=== PATIENT | male | born 1935 | race Asian ===

== ENCOUNTER 2019-01-26 19:36 | Emergency (ER) | payer MEDICARE ==
[~2019-01-26] VITALS: Ht 165.1 cm; Wt 63.5 kg
--- NOTE | 2019-01-26 19:28 | NUR ---
ED Nurse Note: pt came in with r68 from home, c/o SOB pt denies any pain bedside bp is 162/101 and heart rate 98
[2019-01-26 19:38] VITALS: BP 183/109
--- NOTE | 2019-01-26 19:45 | NUR ---
ED Nurse Note: blood sent to lab
--- NOTE | 2019-01-26 20:07 | NUR ---
ED Nurse Note: followed up with xray lab, per pest control service technician they will be on their way
[2019-01-26 20:14] LABS: EOSINOPHILS % (AUTO) 3.6 % (0.0-3.0); HEMATOCRIT 41.3 % (42.0-52.0); HEMOGLOBIN 13.3 G/DL (14.2-18.0); LYMPHOCYTES % (AUTO) 18.6 % (20.0-45.0); MEAN CORPUSCULAR VOLUME 92 FL (80-99); MONOCYTES % (AUTO) 10.4 % (1.0-10.0); NEUTROPHILS % (AUTO) 65.4 % (45.0-75.0); PLATELET COUNT 128 K/UL (150-450); RED BLOOD COUNT 4.51 M/UL (4.70-6.10); RED CELL DISTRIBUTION WIDTH 12.4 % (11.6-14.8); WHITE BLOOD COUNT 6.5 K/UL (4.8-10.8)
[2019-01-26 20:27] LABS: ANION GAP 9 mmol/L (5-15); BLOOD UREA NITROGEN 26 mg/dL (7-18); CALCIUM 9.2 MG/DL (8.5-10.1); CARBON DIOXIDE 26 MMOL/L (21-32); CHLORIDE 106 MMOL/L (98-107); CREATININE 1.8 MG/DL (0.55-1.30); POTASSIUM 4.7 MMOL/L (3.5-5.1); SODIUM 141 MMOL/L (136-145)
[2019-01-26] MEDS ORDERED: Nitroglycerin 2% oint pkt TOPIC ONE (20:30)
[2019-01-26 20:40] LABS: ALANINE AMINOTRANSFERASE 63 U/L (12-78); ALBUMIN 3.4 G/DL (3.4-5.0); ALKALINE PHOSPHATASE 94 U/L (46-116); ASPARTATE AMINO TRANSFERASE 67 U/L (15-37); BILIRUBIN,TOTAL 0.6 MG/DL (0.2-1.0); CKMB 2.3 NG/ML (0.0-3.6); CREATINE KINASE 162 U/L (26-308)
--- NOTE | 2019-01-26 20:42 | Emergency Room Report ---
History of Present Illness General Chief Complaint: Dyspnea/Respdistress Source: Patient Present Illness HPI This patient complains of shortness of breath. He states he has had these symptoms for about a month. He states his symptoms are worse on exertion. He denies recent illness. He denies cough or congestion. He denies fever or chills. He denies nausea or vomiting. He does not have a history of congestive heart failure. He has no other complaints. Allergies: Coded Allergies: No Known Allergies (Unverified , 01/26/19) Patient History Past Medical History: see triage record, HTN, AFib Social History: Denies: smoking, alcohol use, drug use Reviewed Nursing Documentation: PMH: Agreed; PSxH: Agreed Nursing Documentation-PMH Hx Hypertension: Yes Review of Systems All Other Systems: negative except mentioned in HPI Physical Exam Vital Signs Date Time Temp Pulse Resp B/P (MAP) Pulse Ox O2 Delivery O2 Flow Rate FiO2 01/26/19 19:16 98.6 83 14 183/109 98 Room Air Sp02 EP Interpretation: reviewed, normal General Appearance: no apparent distress, alert, GCS 15, non-toxic Head: normocephalic, atraumatic Eyes: bilateral eye normal inspection, bilateral eye PERRL ENT: hearing grossly normal, normal pharynx, no angioedema, normal voice Neck: full range of motion, supple/symm/no masses Respiratory: chest non-tender, no respiratory distress, no retraction, no accessory muscle use, speaking full sentences, wheezing, expiration Cardiovascular #1: regular rate, rhythm, no edema Gastrointestinal: normal bowel sounds, non tender, soft, non-distended, no guarding, no rebound Rectal: deferred Musculoskeletal: back normal, gait/station normal, normal range of motion, non- tender Neurologic: alert, oriented x3, responsive, motor strength/tone normal, sensory intact, speech normal Psychiatric: judgement/insight normal, memory normal, mood/affect normal, no suicidal/homicidal ideation Skin: normal color, no rash, warm/dry, well hydrated Medical Decision Making Diagnostic Impression: Primary Impression: CHF (congestive heart failure) Additional Impression: Renal insufficiency Laboratory Tests Test 01/26/19 19:52 White Blood Count 6.5 K/UL (4.8-10.8) Red Blood Count 4.51 M/UL (4.70-6.10) L Hemoglobin 13.3 G/DL (14.2-18.0) L Hematocrit 41.3 % (42.0-52.0) L Mean Corpuscular Volume 92 FL (80-99) Mean Corpuscular Hemoglobin 29.5 PG (27.0-31.0) Mean Corpuscular Hemoglobin Concent 32.2 G/DL (32.0-36.0) Red Cell Distribution Width 12.4 % (11.6-14.8) Platelet Count 128 K/UL (150-450) L Mean Platelet Volume 10.3 FL (6.5-10.1) H Neutrophils (%) (Auto) 65.4 % (45.0-75.0) Lymphocytes (%) (Auto) 18.6 % (20.0-45.0) L Monocytes (%) (Auto) 10.4 % (1.0-10.0) H Eosinophils (%) (Auto) 3.6 % (0.0-3.0) H Basophils (%) (Auto) 2.0 % (0.0-2.0) Sodium Level 141 MMOL/L (136-145) Potassium Level 4.7 MMOL/L (3.5-5.1) Chloride Level 106 MMOL/L (98-107) Carbon Dioxide Level 26 MMOL/L (21-32) Anion Gap 9 mmol/L (5-15) Blood Urea Nitrogen 26 mg/dL (7-18) H Creatinine 1.8 MG/DL (0.55-1.30) H Estimate Glomerular Filtration Rate mL/min (>60) Glucose Level 99 MG/DL (74-106) Calcium Level 9.2 MG/DL (8.5-10.1) Total Bilirubin 0.6 MG/DL (0.2-1.0) Aspartate Amino Transferase (AST) 67 U/L (15-37) H Alanine Aminotransferase (ALT) 63 U/L (12-78) Alkaline Phosphatase 94 U/L (46-116) Total Creatine Kinase 162 U/L (26-308) Creatine Kinase MB 2.3 NG/ML (0.0-3.6) Creatine Kinase MB Relative Index 1.4 Troponin I 0.028 ng/mL (0.000-0.056) Pro-B-Type Natriuretic Peptide 5861 pg/mL (0-125) H Total Protein 6.8 G/DL (6.4-8.2) Albumin 3.4 G/DL (3.4-5.0) Globulin 3.4 g/dL Albumin/Globulin Ratio 1.0 (1.0-2.7) EKG Diagnostic Results Rate: normal Rhythm: other - A.fib ST Segments: other - NSST Rhythm Strip Diag. Results EP Interpretation: yes Rate: 80's Rhythm: other - A.fib Last Vital Signs Date Time Temp Pulse Resp B/P (MAP) Pulse Ox O2 Delivery O2 Flow Rate FiO2 01/26/19 20:25 181/107 01/26/19 19:38 83 14 Room Air 01/26/19 19:38 98.6 98 Suad Sy DO Jan 26, 2019 20:42
[2019-01-26 21:40] VITALS: BP 183/110
--- NOTE | 2019-01-26 22:30 | NUR ---
ED Nurse Note: pt is unable to recall home medications, per pt he has one to go home/check what medications he has.
--- NOTE | 2019-01-26 23:28 | NUR ---
ED Nurse Note: ermd permitted pt to have sandwhich and water
[2019-01-26 23:29] VITALS: BP 161/96
[2019-01-27] MEDS ORDERED: UNOBMED (00:11)
[2019-01-27] MEDS ORDERED: Morphine Sulfate 4mg/ml Inj (IV USE ONLY) IVP ONE (00:30)
--- NOTE | 2019-01-27 01:43 | NUR ---
ED Nurse Note: TELEPHONE REPORT GIVEN TO ALVINO DIAS FROM [facility]
[2019-01-27 02:16] VITALS: BP 161/96
--- NOTE | 2019-01-27 02:17 | NUR ---
ED Nurse Note: PATIENT DISCHARGED WITH ALS TO [facility], REPORT CALLED IN BY PREVIOUS NURSE, TO TRANSFER CENTER. PATIENT IN STABLE CONDITION.
--- NOTE | 2019-01-27 11:40 | Diagnostic Imaging Report ---
Indication: Shortness of breath Technique: One view of the chest Comparison: none Findings: The heart is enlarged. There is equivocal hazy opacity in the right lung base. Pleural spaces are clear. Left lung is clear. Impression: Cardiomegaly Equivocal right basilar infiltrate or focal edema-correlate with clinical findings
== END 2019-01-27 02:19 | disposition short-term general hospital (02) ==
LOC: EDBD 19:36 → EMR 20:00
DX: I11.0 Hypertensive heart disease with heart failure (principal); I50.9 Heart failure, unspecified; N28.9 Disorder of kidney and ureter, unspecified
CPT/HCPCS: 36415; 71045; 80053; 82550; 82553; 83880; 84484; 85025; 93005; 96361; 96374; 96375; 99284; J0360; J1940; J2270; J2405